=== PATIENT | female | born 1965 ===

== ENCOUNTER 2019-01-10 09:28 | Emergency (ER) | payer OTHER ==
[2019-01-10 09:37] VITALS: RESP 18; TEMP 98.1; O2SAT 100
--- NOTE | 2019-01-10 11:03 | C.PDOC ---
History Of Present Illness 53 year old female, whose PMHx includes HTN, presents to the ED for evaluation of pain to her collar bone which gradually developed since yesterday. 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 Patient denies know trauma/injury to the area, chest pain, shortness of breath, shoulder pain, weakness, sorsorivascular deficits, history of thyroid problems or diabetes. Time Seen by Provider: 01/10/19 10:24 Chief Complaint (Nursing): Upper Extremity Problem/Injury History Per: Patient History/Exam Limitations: no limitations Onset/Duration Of Symptoms: Hrs, Gradual Current Symptoms Are (Timing): Still Present Quality: "Pain" Additional History Per: Patient Past Medical History Reviewed: Historical Data, Nursing Documentation, Vital Signs Vital Signs: Last Vital Signs Temp 98.1 F 01/10/19 09:35 Pulse 86 01/10/19 09:35 Resp 18 01/10/19 09:35 BP 138/88 01/10/19 09:35 Pulse Ox 100 01/10/19 09:35 - Medical History PMH: HTN Surgical History: No Surg Hx Family History: States: Unknown Family Hx - Social History Hx Alcohol Use: No Hx Substance Use: No - Immunization History Hx Tetanus Toxoid Vaccination: Yes Hx Influenza Vaccination: No Hx Pneumococcal Vaccination: No Review Of Systems Constitutional: Negative for: Fever, Chills, Weakness Cardiovascular: Negative for: Chest Pain Respiratory: Negative for: Shortness of Breath Musculoskeletal: Positive for: Other (collar bone pain ). Negative for: Shoulder Pain Skin: Negative for: Rash, Lesions, Jaundice, Bruising Neurological: Negative for: Weakness, Numbness Physical Exam - Physical Exam Appears: Well, Non-toxic, No Acute Distress Skin: Normal Color, Warm, No Rash, No Ecchymosis Head: Normacephalic Eye(s): bilateral: PERRL Oral Mucosa: Moist Neck: Trachea Midline, No Midline Cervical Tenderness, No Paracervical T enderness, Supple Chest: Symmetrical, No Deformity, Tenderness (over proximal aspect of the right clavicle with some diffuse edema ), No Other (erythema or palpable mass ) Extremity: Normal ROM, No Tenderness (shoulder ), Capillary Refill (less than 2 seconds ), No Deformity, No Swelling Neurological/Psych: Oriented x3, Normal Speech, Normal Motor, Normal Sensation ED Course And Treatment - Laboratory Results Result Diagrams: 01/10/19 12:32 01/10/19 12:32 O2 Sat by Pulse Oximetry: 100 (on RA ) Pulse Ox Interpretation: Normal - Other Rad clavicle XR X-Ray: Viewed By Me, Read By Radiologist Interpretation: Date of service: 01/10/2019. PROCEDURE: Radiographs of the right clavicle. HISTORY: Pain. COMPARISON: None. TECHNIQUE: 2 views obtained. FINDINGS: RIGHT CLAVICLE: There is mild diffuse bone deminerali zation. No acute fracture or bone destruction. JOINTS: There is mild degenerative osteoarthrosis in the acromioclavicular joint with reduced joint space and marginal spurring. SOFT TISSUES: Grossly unremarkable. OTHER FINDINGS: None. IMPRESSION: No acute displaced fracture. Mild degenerative osteoarthrosis in the acromioclavicular joint. shoulder XR X-Ray: Viewed By Me, Read By Radiologist Interpretation: Date of service: 01/10/2019. PROCEDURE: Radiographs of the Right Shoulder. HISTORY: Pain. COMPARISON: No prior. TECHNIQUE: 3 views obtained. FINDINGS: BONES: Normal. No fracture. JOINTS: Mild degenerative osteoarthritis right acromioclavicular and glenohumeral joints. SOFT TISSUES: Normal. OTHER FINDINGS: None. IMPRESSION: No evidence of acute displaced fracture nor dislocation. 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 Progress Note: Right shoulder and right clavicle XR ordered. Pt refused to wait for imaging, " need to take my grand son from school". Pt advised on risk, agrees with wish to leave. pt advise dto return to ED at any time to complete evaluation. Against Medical Advice - AMA Patient Left Against Medical Advice: The patient declines admission to the hospital and wishes to leave the Emergency Department. This action is against my medical advice. This decision was made with informed refusal. The patient was told that admission to the hospital is necessary. Explanation of the reasons why were discussed. The risks of leaving were explained to the patient and include, but are not limited to, worsening of known or currently unknown conditions, permanent disability and from undiagnosed or untreated conditions. The patient has the capacity to make this informed decision and understands my explanation of the current medical problem and risks of leaving. The patient voluntarily accepts these risks and signed an AMA form documenting our conversation. The patient was given the opportunity to ask questions and reconsider. The patient was encouraged to return to the Emergency Department at any time for further care. Disposition - Disposition Disposition: AGAINST MEDICAL ADVICE Disposition Time: 12:50 Condition: STABLE Instructions: Chest Pain Forms: [facility] (Georgian), Work Excuse - Clinical Impression Clinical Impression: Chest pain, Clavicular area fullness - PA / INSURANCE VERIFICATION CLERK / Resident Statement MD/DO has reviewed & agrees with the documentation as recorded. - Scribe Statement The provider has reviewed the documentation as recorded by the Scribe (Luana Carrington) All medical record entries made by the Scribe were at my direction and p ersonally dictated by me. I have reviewed the chart and agree that the record accurately reflects my personal performance of the history, physical exam, medical decision making, and the department course for this patient. I have also personally directed, reviewed, and agree with the discharge instructions and disposition.
--- NOTE | 2019-01-10 11:19 | RAD ---
Date of service: 01/10/2019 PROCEDURE: Radiographs of the right clavicle. HISTORY: Pain COMPARISON: None. TECHNIQUE: 2 views obtained. FINDINGS: RIGHT CLAVICLE: There is mild diffuse bone demineralization. No acute fracture or bone destruction. JOINTS: There is mild degenerative osteoarthrosis in the acromioclavicular joint with reduced joint space and marginal spurring. SOFT TISSUES: Grossly unremarkable. OTHER FINDINGS: None. IMPRESSION: No acute displaced fracture. Mild degenerative osteoarthrosis in the acromioclavicular joint.
--- NOTE | 2019-01-10 12:33 | RAD ---
Date of service: 01/10/2019 PROCEDURE: Radiographs of the Right Shoulder HISTORY: Pain COMPARISON: No prior. TECHNIQUE: 3 views obtained. FINDINGS: BONES: Normal. No fracture. JOINTS: Mild degenerative osteoarthritis right acromioclavicular and glenohumeral joints. SOFT TISSUES: Normal. OTHER FINDINGS: None. IMPRESSION: No evidence of acute displaced fracture nor dislocation. 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
[2019-01-10 12:45] LABS: BASO # 0.1 K/uL (0.0-0.2); BASO % 0.9 % (0.0-2.0); EOS # 0.2 K/uL (0.0-0.7); EOS % 2.4 % (0.0-4.0); HEMOGLOBIN 13.7 g/dL (11.0-16.0); LYMPH # 2.4 K/uL (1.0-4.3); LYMPH % 33.3 % (20.0-40.0); MEAN CELL VOLUME 93.6 fL (81.0-99.0); MEAN CORPUSCULAR HEMOGLOBIN 31.3 pg (27.0-31.0); MEAN CORPUSCULAR HGB CONC 33.5 g/dL (33.0-37.0); MEAN PLATELET VOLUME 9.5 fL (7.2-11.7); MONO # 0.5 K/uL (0.0-0.8); MONO % 7.2 % (0.0-10.0); NEUT # 4.1 K/uL (1.8-7.0); NEUT % 56.2 % (50.0-75.0); RBC 4.37 Mil/uL (3.80-5.20); RED CELL DISTRIBUTION WIDTH 13.5 % (11.5-14.5); WHITE BLOOD COUNT 7.2 K/uL (4.8-10.8)
[2019-01-10 12:57] LABS: BLOOD UREA NITROGEN 17 mg/dL (7-17); CALCIUM 9.3 mg/dl (8.6-10.4); GFR NON-AFRICAN AMERICAN > 60
[2019-01-10 12:58] VITALS: BP 131/81; PULSE 82
[2019-01-10 13:00] LABS: ALB/GLOB RATIO 1.3 (1.0-2.1); ALBUMIN 4.2 g/dL (3.5-5.0); ALT/SGPT 150 U/L (9-52); AST/SGOT 87 U/L (14-36)
[2019-01-10] MEDS ORDERED: Iodixanol 320 MG/ML 100 ML BOTTLE IV ONE (13:12)
== END 2019-01-10 12:58 | disposition left against medical advice (07) ==
LOC: C.ER 09:28
DX: R07.9 Chest pain, unspecified (principal)